=== PATIENT | female | born 1960 | race Caucasian/White ===

== ENCOUNTER → 2020-01-03 | Outpatient (CLI) | payer OTHER ==
[~2020-01-03] MED LIST: GADOBENATE DIMEGLUMINE 1 ML IV ONE
--- NOTE | 2020-01-03 14:58 | Diagnostic Imaging Report ---
Examination: MRI SPINE LUMBAR WOW CONTRAST History: Back pain that radiates down the front of the left greater than right lower extremity with associated numbness and weakness. Comparison studies: None Technique: Pre-contrast: Sagittal and axial T2 , sagittal T1 and IR, axial spin density oblique. Post contrast: Axial and sagittal fat saturated sequences. Intravenous contrast: 10 mL of MultiHance. Findings: Number of lumbar vertebral bodies:Five. Alignment: Normal lordosis. No scoliosis. Soft tissues: There are several T2 hyperintense rounded nonenhancing lesions in the bilateral kidneys, representing cysts. Paraspinal muscles: No signal abnormalities. Well-preserved. No atrophic changes Lower thoracic cord: Normal in signal and morphology. The tip of the conus is at T12-L1 . Cauda equina: No masses. No arachnoiditis. Vertebrae: No compression fractures, infection or neoplasm. Degenerative changes: Severe intervertebral disc space narrowing from T10 through L2 and from L4 through S1. L1-L2: Diffuse disc bulge, ligamentum flavum thickening and bilateral facet arthropathy result in moderate bilateral neural foraminal narrowing and mild canal stenosis. L2-L3: No abnormalities L3-L4: Prior decompressive laminectomy. Diffuse disc bulge and the lateral facet arthropathy result in severe bilateral neural foraminal narrowing and impingement on the bilateral exiting L3 nerve roots. There is a 7 mm heterogeneous rounded lesion in the left anterior and lateral epidural space and causes mild flattening of the left lateral thecal sac. This finding most probably represents a complex synovial cyst. L4-L5: Small central disc extrusion with inferior migration superimposed on a diffuse disc bulge and bilateral facet arthropathy result in moderate bilateral neural foraminal narrowing. Prior decompressive laminectomy. L5-S1: Diffuse disc bulge and bilateral facet arthropathy result in severe bilateral neural foraminal narrowing and contact of the bilateral exiting L5 nerve roots IMPRESSION: 1. Degenerative changes at L1-L2 and from L3-L4 through L5-S1 with mild canal stenosis at L1-L2. Mild flattening of the left lateral thecal sac by a 7 mm heterogeneous left anterior and lateral upper dural space lesion, most probably representing a complex synovial cyst at L3-L4. 2. Severe bilateral neural foraminal narrowing at L3-L4 and L5-S1 with impingement on the bilateral exiting L3 nerve roots and contact of the bilateral L5 nerve roots, respectively. Moderate bilateral neural foraminal narrowing at L1-L2 and L4-L5. Prior decompressive laminectomy at L3-L4 and L4-L5. Signed by: Dr. Maria E Davis M.D. on 01/03/2020 2:56 PM
== END ==
LOC: MRI 08:59
PROVIDERS: ATTEND Neurological Surgery
DX: M51.16 Intervertebral disc disorders with radiculopathy, lumbar region (principal)
CPT/HCPCS: 72158; A9577